=== PATIENT | female | born 1990 | race Caucasian/White ===

== ENCOUNTER 2016-06-16 00:30 | Emergency (ER) | payer OTHER ==
[~2016-06-16] VITALS: Ht 162.6 cm; Wt 76.7 kg
[~2016-06-16 00:30] MED LIST: ACET650S53 GT; PRETAB GT
[2016-06-16 00:45] VITALS: BP 149/77
--- NOTE | 2016-06-16 00:52 | NUR ---
TO ER BED 4
--- NOTE | 2016-06-16 01:06 | NUR ---
PATIENT PRESENTS TO ED WITH C/O PAIN TO RIGHT MIDDLE FINGER . PT DENIES N/V/D; SKIN IS PINK/WARM/DRY; AAOX4 WITH EVEN AND STEADY GAIT; LUNGS CLEAR BL; HR EVEN AND REGULAR; PT DENIES ANY FEVER, CP, SOB, OR COUGH AT THIS TIME; PATIENT STATES PAIN OF 10/10 AT THIS TIME; VSS; PATIENT POSITIONED FOR COMFORT; HOB ELEVATED; BEDRAILS UP X2; BED DOWN. ER MD MADE AWARE OF PT STATUS.
--- NOTE | 2016-06-16 01:10 | NUR ---
Patient being evaluated by physician at bedside.
[2016-06-16] MEDS ORDERED: fentaNYL 0.05 MG/ML VIAL IVP ONE ×2 (01:15→03:10)
[2016-06-16] MEDS ORDERED: CLINDAMYCIN 900 MG in DEXTROSE 5% 100 ML IV ONE (01:15)
[2016-06-16] MEDS ORDERED: NACL 0.9% 1,000 ML IV ONE (01:15)
[2016-06-16] MEDS ORDERED: PIPERACILLIN/TAZOBACTAM 3.375 GM in DEXTROSE 5% 50 ML IV ONE (01:15)
[2016-06-16] MEDS ORDERED: PIPERACILLIN/TAZOBACTAM 3.375 GM VIAL IV ONE (01:25)
[2016-06-16] MEDS ORDERED: CLINDAMYCIN 900 MG/6 ML VIAL IV ONE (01:25)
[2016-06-16 01:34] LABS: BASOPHILS # (AUTO) 0.3 K/uL (0.00-0.22); EOSINOPHILS # (AUTO) 0.2 K/uL (0-0.4); EOSINOPHILS % (AUTO) 1.3 % (0.0-4.0); HEMATOCRIT 38.6 % (36-48); HEMOGLOBIN 12.6 g/dL (12.0-16.0); LYMPHOCYTES # (AUTO) 2.4 K/uL (2.5-16.5); LYMPHOCYTES % (AUTO) 15.1 % (20.5-51.1); MEAN CORPUSCULAR HEMOGLOBIN 30 pg (27-31); MEAN CORPUSCULAR HGB CONC 33 g/dL (33-37); MEAN CORPUSCULAR VOLUME 93 fL (80-94); MONOCYTES # (AUTO) 0.8 K/uL (0.8-1.0); NEUTROPHILS # (AUTO) 11.9 K/uL (1.8-7.7); NEUTROPHILS % (AUTO) 76.6 % (42.2-75.2); PLATELET COUNT (AUTO) 302 K/uL (140-450); RED BLOOD CELL COUNT(AUTO) 4.15 MIL/uL (4.20-5.40); RED CELL DISTRIBUTION WIDTH 14.8 % (11.6-13.7)
[2016-06-16 01:45] LABS: WHITE BLOOD COUNT (AUTO) 15.6 K/uL (4.8-10.8)
[2016-06-16 01:48] LABS: ALBUMIN 4.1 g/dL (3.4-5.0); ANION GAP 15.3 (8-16); CALCIUM 8.9 mg/dL (8.5-10.1); CARBON DIOXIDE 27.4 mmol/L (21-32); CREATININE 0.9 mg/dL (0.6-1.3); POTASSIUM 3.7 mmol/L (3.5-5.1); TOTAL BILIRUBIN 0.5 mg/dL (0.0-1.0); TOTAL PROTEIN, SERUM 8.1 g/dL (6.4-8.2)
[2016-06-16 01:53] LABS: INR 1.1 (0.8-1.2); PARTIAL THROMBOPLASTIN TIME 26.3 secs (22-35.6); PROTHROMBIN TIME 10.2 secs (10.8-13.4)
[2016-06-16] MEDS ORDERED: LIDOCAINE 1% ED 50 ML ONE (02:12)
--- NOTE | 2016-06-16 02:15 | NUR ---
DR HIDAGLO IRRIGATED WOUND AT BEDSIDE, PT TOLERATED WELL.
[2016-06-16] MEDS ORDERED: HYDROcodone/APAP 10/325 MG 1 TAB TAB PO ONE (02:40)
--- NOTE | 2016-06-16 02:42 | NUR ---
PT IN PAIN AFTER PROCDURE, NORCO GIVEN.
--- NOTE | 2016-06-16 03:15 | NUR ---
PT IN PAIN, IV PAIN MED GIVEN.
--- NOTE | 2016-06-16 03:30 | NUR ---
Patient discharged with v/s stable. Written and verbal after care instructions given and explained. Patient alert, oriented and verbalized understanding of instructions. Ambulatory with steady gait. All questions addressed prior to discharge. ID band removed. Patient advised to follow up with PMD. Rx of CLINDAMYCIN, BACTRIM, NORCO AND MOTRIN given. Patient educated on indication of medication including possible reaction and side effects. Opportunity to ask questions provided and answered.
[2016-06-16 04:43] VITALS: BP 125/68
== END 2016-06-16 03:30 | disposition home or self-care (01) ==
LOC: MED 00:30
DX: L03.011 Cellulitis of right finger (principal)
CPT/HCPCS: 26010; 36415; 73130; 80053; 85025; 85610; 85730; 87040; 87070; 87186; 90471; 90715; 96365; 96367; 96375; 99291; J2001; J2543; J3010; J3490; J7030; J7060; 96376

== ENCOUNTER 2016-06-17 17:02 | Emergency (ER) | payer OTHER ==
[~2016-06-17] VITALS: Ht 170.2 cm; Wt 73.0 kg
[2016-06-17 17:24] VITALS: BP 119/71
--- NOTE | 2016-06-17 19:18 | NUR ---
PATIENT LEFT WITHOUT BEING SEEN BY DR. HERNANDEZ. NO FURTHER CARE PROVIDED FOR PATIENT.
== END 2016-06-17 19:18 | disposition left against medical advice (07) ==
LOC: MED 17:02
DX: M79.646 Pain in unspecified finger(s) (principal); Z53.21 Procedure and treatment not carried out due to patient leaving prior to being seen by health care provider

== ENCOUNTER 2020-09-21 14:08 | Emergency (ER) | payer OTHER ==
[~2020-09-21] VITALS: Ht 165.1 cm; Wt 68.0 kg
[2020-09-21 14:22] VITALS: BP 111/45
--- NOTE | 2020-09-21 14:32 | NUR ---
30YO F COMPLAINS OF BILATERAL EYE PAIN SINCE THIS MORNING. PT STATES SHE FELL ASLEEP WITH CONTACT LENSES ON AND IS UNABLE TO OPEN HER EYES DUE TO SEVERE PAIN. 10/10 BURNING. PT PUT EYEDROPS WHICH PROVIDED NO RELIEF. IN ED, VSS. PT CRYING DUE TO PAIN, REFUSES TO OPEN EYES. PT POSITIONED COMFORTABLY IN BED WITH 2 SIDERAILS UP. PARTNER SEATED AT BEDSIDE. ERMD MADE AWARE OF PT STATUS. PMH - DENIES NKA
[2020-09-21] MEDS ORDERED: FLUORESCEIN OPTH STRIP 1 MG OP ONE (14:35)
[2020-09-21] MEDS ORDERED: TETRACAINE HCL/PF 0.5% OPTH 4 ML BTL OP ONE (14:35)
--- NOTE | 2020-09-21 14:51 | NUR ---
FRANKLIN Angulo is evaluating the patient at bedside.
[2020-09-21] MEDS ORDERED: CIPR5SOL3 RIGHT EYE (14:59)
[2020-09-21] MEDS ORDERED: NAPR-54 PO (14:59)
[2020-09-21 15:12] VITALS: BP 111/45
--- NOTE | 2020-09-21 15:12 | NUR ---
Patient discharged with v/s stable. Written and verbal after care instructions given and explained. Patient alert, oriented and verbalized understanding of instructions. Ambulatory with steady gait. All questions addressed prior to discharge. ID band removed. Patient advised to follow up with PMD. Rx of CIPROFLOXACIN, NAPROXEN given. Patient educated on indication of medication including possible reaction and side effects. Opportunity to ask questions provided and answered.
== END 2020-09-21 15:12 | disposition home or self-care (01) ==
LOC: MED 14:08
DX: S05.01XA Injury of conjunctiva and corneal abrasion without foreign body, right eye, initial encounter (principal); Z79.899 Other long term (current) drug therapy; X58.XXXA Exposure to other specified factors, initial encounter; Y93.89 Activity, other specified; Y92.89 Other specified places as the place of occurrence of the external cause; Y99.8 Other external cause status
CPT/HCPCS: 99283

== ENCOUNTER 2021-10-02 11:30 | Emergency (ER) | payer OTHER ==
[~2021-10-02] VITALS: Ht 167.6 cm; Wt 76.2 kg
[~2021-10-02 11:30] MED LIST changes: +CIPR5SOL3 RIGHT EYE; +NAPR-54 PO
[2021-10-02 11:40] VITALS: BP 131/74
[2021-10-02 14:13] LABS: ALBUMIN 3.5 g/dL (3.4-5.0); ANION GAP 10.1 (8-16); CARBON DIOXIDE 29.7 mmol/L (21-32); POTASSIUM 3.8 mmol/L (3.5-5.1); TOTAL BILIRUBIN 0.2 mg/dL (0.0-1.0)
[2021-10-02 14:16] LABS: BASOPHILS % (AUTO) 0.6 % (0.0-2.0); EOSINOPHILS # (AUTO) 0.1 K/uL (0-0.4); EOSINOPHILS % (AUTO) 1.3 % (0.0-4.0); HEMATOCRIT 36.1 % (36-48); HEMOGLOBIN 12.3 g/dL (12.0-16.0); LYMPHOCYTES # (AUTO) 2.3 K/uL (2.5-16.5); LYMPHOCYTES % (AUTO) 34.8 % (20.5-51.1); MEAN CORPUSCULAR HEMOGLOBIN 33 pg (27-31); MEAN CORPUSCULAR HGB CONC 34 g/dL (33-37); MEAN CORPUSCULAR VOLUME 95.3 fL (80-94); MONOCYTES # (AUTO) 0.6 K/uL (0.8-1.0); MONOCYTES % (AUTO) 8.4 % (1.7-9.3); NEUTROPHILS # (AUTO) 3.6 K/uL (1.8-7.7); NEUTROPHILS % (AUTO) 54.9 % (42.2-75.2); PLATELET COUNT (AUTO) 265 K/uL (140-450); RED BLOOD CELL COUNT(AUTO) 3.79 MIL/uL (4.20-5.40); RED CELL DISTRIBUTION WIDTH 14.4 % (11.6-13.7); WHITE BLOOD COUNT (AUTO) 6.6 K/uL (4.8-10.8)
[2021-10-02 15:14] LABS: BARBITURATE, URINE NEGATIVE ng/ml (NEG <=200); BENZODIAZEPINE, URINE NEGATIVE ng/mL (NEG <=200); CANNABINOID, URINE POSITIVE ng/mL (NEG <=50); COCAINE, URINE NEGATIVE ng/mL (NEG <=300); OPIATE, URINE NEGATIVE ng/mL (NEG <=2000); PHENCYCLIDINE SCREEN,URINE NEGATIVE ng/mL (NEG <=25)
== END 2021-10-02 14:39 | disposition home or self-care (01) ==
LOC: MED 11:30
DX: F41.9 Anxiety disorder, unspecified (principal); R42 Dizziness and giddiness; R53.83 Other fatigue; F32.9 Major depressive disorder, single episode, unspecified; F15.90 Other stimulant use, unspecified, uncomplicated; F43.10 Post-traumatic stress disorder, unspecified; Z79.899 Other long term (current) drug therapy
CPT/HCPCS: 36415; 80053; 80305; 81002; 81025; 85025; 93005; 99284

== ENCOUNTER 2022-05-25 20:50 | Emergency (ER) | payer OTHER ==
[~2022-05-25] VITALS: Ht 165.1 cm; Wt 79.4 kg
[2022-05-25 20:50] VITALS: BP 132/82
--- NOTE | 2022-05-25 20:50 | NUR ---
TO LOBBY A/W BED VIA W/C
--- NOTE | 2022-05-25 22:17 | NUR ---
No answer times 3. Rosita FINK and Eze GREGORY attempted to call patient from lobby three times, no answer,
--- NOTE | 2022-05-25 22:18 | NUR ---
PATIENT LEFT WITHOUT BEING SEEN BY DR. LOYA. NO FURTHER CARE PROVIDED FOR PATIENT.
== END 2022-05-25 22:14 | disposition left against medical advice (07) ==
LOC: MED 20:50
DX: R06.02 Shortness of breath (principal); R07.9 Chest pain, unspecified; Z53.21 Procedure and treatment not carried out due to patient leaving prior to being seen by health care provider
CPT/HCPCS: 99281

== ENCOUNTER 2023-10-16 06:15 | Emergency (ER) | payer OTHER ==
[~2023-10-16] VITALS: Ht 170.2 cm; Wt 63.5 kg
[2023-10-16 06:15] VITALS: BP 121/64; PULSE 107; RESP 18; TEMP 99.1; O2SAT 98
[~2023-10-16 06:15] MED LIST changes: +CIPR5DRO RIGHT EYE; -CIPR5SOL3 RIGHT EYE; +NAPR-337 PO; -NAPR-54 PO
[2023-10-16 06:39] VITALS: BP 121/64; PULSE 107; RESP 18; TEMP 99.1; O2SAT 98
[2023-10-16] MEDS: KETOROLAC 30 MG/ML VIAL IM ONE (06:56)
[2023-10-16 07:03] LABS: APPEARANCE,URINE CLEAR (CLEAR); BILIRUBIN,URINE NEGATIVE (NEGATIVE); BLOOD, URINE NEGATIVE (NEGATIVE); COLOR,URINE YELLOW (YELLOW); LEUKOCYTE ESTERASE ,URINE TRACE (NEGATIVE); NITRITE, URINE NEGATIVE (NEGATIVE); PROTEIN,URINE NEGATIVE (NEGATIVE); UGLUCOSE NEGATIVE (NEGATIVE)
== END 2023-10-16 06:56 | disposition left against medical advice (07) ==
LOC: MED 06:15
DX: R10.9 Unspecified abdominal pain (principal); K59.00 Constipation, unspecified; R11.0 Nausea; Z53.21 Procedure and treatment not carried out due to patient leaving prior to being seen by health care provider
CPT/HCPCS: 81003; 81025; J1885